=== PATIENT | male | born 1940 | race Caucasian/White ===

== ENCOUNTER 2017-02-21 09:28 | Emergency (ER) | payer MEDICARE, OTHER ==
[~2017-02-21] VITALS: Ht 167.6 cm; Wt 95.0 kg
[~2017-02-21 09:28] MED LIST: DILT300C43; LEVO88TA; SIMV20TA2; TELM80TA2
[2017-02-21 09:31] VITALS: Ht 167.6 cm; Wt 95.0 kg
--- NOTE | 2017-02-21 10:37 | ERD ---
ER Documentation Chief Complaint Date/Time DATE: 02/21/17 TIME: 10:29 Chief Complaint Complains of right rib pain after a last night HPI 76-year-old male patient with a past medical history of hypertension, hyperlipidemia, hypothyroidism presents to the ED for a mechanical fall that occurred yesterday, last night at 11:30 PM. States that he had 1.5 bottles of wine last night, accidentally fell and hit the right side of his rib onto a stool. Reports that he also hit his head. Describes the pain as achy and rates it a 9 out of 10. States that he is taking aspirin. Reports that he is taking Diltiazem, Micardis, Synthroid, Atorvastatin. Reports that he has had a long-standing history of drinking wine daily. Denies any drug use or smoking. Denies any chest pain, shortness of breath, wheezing, neck pain, headache, nausea, vomiting. Denies any loss of consciousness. Denies any seizures. ROS All systems reviewed and are negative except as per history of present illness. Medications Home Meds Active Scripts Acetaminophen* (Tylophen*) 500 Mg Capsule, 1 CAP PO Q6H Y for PAIN AND OR ELEVATED TEMP, #20 CAP Prov:JORDANA CABRAL PA-C 02/21/17 Hydrocodone/Acetaminophen ([place]st 5-325 Tablet) 1 Each Tablet, 1 TAB PO QHS Y for PAIN, #7 TAB Prov:JORDANA CABRAL PA-C 02/21/17 Reported Medications Telmisartan (Micardis) 80 Mg Tablet 08/24/10 Diltiazem Hcl (Diltiazem Er) 300 Mg Capsule.sa 08/24/10 Levothyroxine Sodium* (Synthroid*) 88 Mcg Tablet 08/24/10 Simvastatin (Simvastatin) 20 Mg Tablet 08/24/10 Allergies Allergies: Coded Allergies: Diltiazem (Verified Allergy, Severe, 08/24/10) Uncoded Allergies: DUST (Allergy, Mild, 08/25/10) SEAFOOD (Allergy, Mild, 08/25/10) PMhx/Soc Medical and Surgical Hx: pt denies Medical Hx, pt denies Surgical Hx History of Surgery: No Anesthesia Reaction: No Hx Neurological Disorder: No Hx Respiratory Disorders: No Hx Cardiac Disorders: No Hx Psychiatric Problems: No Hx Miscellaneous Medical Probl: No Hx Alcohol Use: No Hx Substance Use: No Hx Tobacco Use: No Smoking Status: Never smoker Physical Exam Vitals Vital Signs Date Time Temp Pulse Resp B/P Pulse Ox O2 Delivery O2 Flow Rate FiO2 02/21/17 12:25 98.5 59 18 129/69 97 Room Air 02/21/17 09:31 97.6 73 20 127/76 98 Physical Exam Const: [id number], well-nourished. In no acute distress. Head: Atraumatic, normocephalic. No hematoma. No simpson sign. Slight ecchymosis noted on right side of forehead. No lacerations, abrasions or bleeding noted. Eyes: Normal Conjunctiva without injection. No purulent discharge. PERRL. EOMI ENT: Normal external ear. Ear canal without erythema. Tympanic membrane pearly black without effusion or bulging. No hemotympanum. Nasal canal clear with normal turbinates. Moist oropharynx without tonsillar exudates. Non- erythematous pharynx. Uvula midline. No drooling. No trismus. Neck: Full range of motion. No meningismus. No cervical lymphadenopathy. Resp: Clear to auscultation bilaterally. No wheezing, rhonchi, rales, or crackles. No accessory muscle use. No retractions. Cardio: Regular rate and rhythm. No murmurs, rubs or gallops. Chest: Tenderness to palpation of right lower ribs. No crepitus. Abd: Soft, non tender, non distended. Normal bowel sounds. No palpable masses. No rebound tenderness. No guarding. No ecchymosis. Skin: No petechiae or rashes Back: No midline tenderness. No CVA tenderness. Ext: No cyanosis, or edema. Neur: Awake and alert. Psych: Normal Mood and Affect Procedures/MDM 76-year-old male patient with a past medical history of hypothyroidism, hypertension, hyperlipidemia presents to the ED complaining of right rib pain that started last night. Patient is afebrile and nontoxic-appearing. Patient has normal vital signs. A CT of the brain without contrast, CT of the neck, chest x-ray, right rib x-ray was ordered to further evaluate patient. PROCEDURE: CT brain without contrast CLINICAL INDICATION: Head trauma/injury, fall TECHNIQUE: CT of the brain without contrast performed on a multidetector CT scanner. One or more of the following dose reduction techniques were used: Automated exposure control, adjustment in mA and / or kV according to patient size, use of iterative reconstructive technique. CTDIvol = 43 mGy; DLP = 720 mGy-cm. COMPARISON: None available FINDINGS: No acute intracranial hemorrhage is identified. No extra-axial fluid collection is seen. There is no mass effect. No midline shift is identified. The ventricles and sulci are mild to moderately enlarged compatible with volume loss. There are mild to moderate areas of hypodensity in the periventricular - deep white matter which are nonspecific but suggestive of chronic small vessel ischemic changes. Black-white differentiation is preserved. Atherosclerotic calcifications of the proximal intracranial arteries are noted. Calvarium and skull base are intact. Mastoid air cells and imaged paranasal sinuses grossly clear. IMPRESSION: 1. No evidence of acute intracranial pathology. 2. Mild to moderate volume loss, with mild to moderate chronic small vessel ischemic changes. PROCEDURE: CT cervical spine without contrast. CLINICAL INDICATION: Fall, neck pain TECHNIQUE: CT of the cervical spine without contrast was performed on a multidetector CT scanner, with multiplanar reformats. One or more of the following dose reduction techniques were used: Automated exposure control, adjustment in mA and / or kV according to patient size, use of iterative reconstructive technique. CTDIvol = 22 mGy and DLP = 450 mGy-cm. COMPARISON: None available. FINDINGS: No fracture or dislocation is identified. There is straightening of the lordosis of the cervical spine. Alignment is otherwise grossly intact. The vertebral bodies are maintained in height. There are atlantoaxial joint degenerative changes, anterior osteophytes at C3-4, C5-6, C6-7 with disc space narrowing, severe at C5-6, mild - moderate at C2-3, C6-7, C7-T1. C2-3: There is a posterior disk/osteophyte with mild central canal stenosis identified. There is facet arthropathy with mild left foraminal narrowing. C3-4: There is a posterior disk/osteophyte with with mild central canal stenosis identified. There are uncovertebral osteophytes and facet arthropathy with moderate - severe left foraminal narrowing. C4-5: There is posterior disc osteophyte and facet arthropathy without significant central canal stenosis or foraminal narrowing identified. C5-6: There is a posterior disk/osteophyte with mild central canal stenosis identified. There are uncovertebral osteophytes and facet arthropathy with mild right, mild to moderate left foraminal narrowing. C6-7: There is posterior disc osteophyte without central canal stenosis identified. There are uncovertebral osteophytes and facet arthropathy with mild bilateral foraminal narrowing. C7-T1: No disc bulge or herniation is identified. There is facet arthropathy. There is no central canal stenosis or foraminal narrowing. IMPRESSION: 1. No fracture/dislocation. 2. Cervical spondylosis/degenerative enthesopathy, with multilevel mild central canal stenosis, and multilevel foraminal narrowing outlined in detail above. PROCEDURE: XR Chest. CLINICAL INDICATION: Fell, right rib pain. TECHNIQUE: Single frontal portable chest was obtained. COMPARISON: None. FINDINGS: Cardiomediastinal silhouette appears normal There are atherosclerotic calcifications in the thoracic aorta. Pulmonary vasculature appears normal. Lungs appear well expanded and clear. No pneumothorax. Costophrenic angles are well defined. There are minimally displaced fractures of the posterior seventh and eighth ribs. IMPRESSION: 1. Atherosclerotic calcifications in the thoracic aorta. 2. No acute air space process identified. 3. No pneumothorax. 4. Minimally displaced fractures of the posterior seventh and eighth ribs. PROCEDURE: XR right rib series. CLINICAL INDICATION: Fell, right rib pain. TECHNIQUE: Three-view of the right rib cage are available for review COMPARISON: Chest radiograph from the same date. FINDINGS: There are minimally displaced fractures of the right seventh, eighth, ninth, tenth and eleventh ribs. The visualized portions of the underlying lung is clear. No evidence of a pneumothorax. IMPRESSION: 1. Minimally displaced fractures of the right seventh, eighth, ninth, tenth and eleventh ribs. 2. No pneumothorax. He sustained minimally displaced fractures of the right 7th, 8th, 9th 10th and 11th ribs. Incentive spirometer given to patient to prevent pneumonia. Low suspicion for acute myocardial infarction, pneumothorax, pneumonia, cardiac tamponade, pulmonary embolism, pleural effusion, AAA, aortic dissection, liver laceration, splenic injury, perforated viscus, acute abdomen, Boerhaave's syndrome, cardiac dysrhythmias,meningitis, intracranial bleed, seizure, stroke, TIA or other emergent conditions. Low suspicion for intracranial, subarachnoid hemorrhage, meningitis, TIA, stroke, seizures, subdural hematoma, epidural hematoma, cerebral sinus thrombosis, or other emergent conditions. Discharge medications: [place], Tylenol Follow up with primary care physician in 1-2 days. Instructed patient to return to the ED sooner for any worsening symptoms. Patient's questions were answered. Patient understood and agreed with discharge plan. Patient discharged stable. Departure Diagnosis: Primary Impression: Head injury Encounter type: initial encounter Qualified Code: S09.90XA - Injury of head , initial encounter Additional Impression: Rib pain on right side Condition: Stable Patient Instructions: Alcohol Intoxication, HEAD INJURY, No Wake-Up (Adult), Rib Contusion, Fall Prevention Referrals: COMMUNITY CLINICS YOU HAVE RECEIVED A MEDICAL SCREENING EXAM AND THE RESULTS INDICATE THAT YOU DO NOT HAVE A CONDITION THAT REQUIRES URGENT TREATMENT IN THE EMERGENCY DEPARTMENT. FURTHER EVALUATION AND TREATMENT OF YOUR CONDITION CAN WAIT UNTIL YOU ARE SEEN IN YOUR DOCTORS OFFICE WITHIN THE NEXT 1-2 DAYS. IT IS YOUR RESPONSIBILITY TO MAKE AN APPOINTMENT FOR FOLOW-UP CARE. IF YOU HAVE A PRIMARY DOCTOR --you should call your primary doctor and schedule an appointment IF YOU DO NOT HAVE A PRIMARY DOCTOR YOU CAN CALL OUR PHYSICIAN REFERRAL HOTLINE AT IF YOU CAN NOT AFFORD TO SEE A PHYSICIAN YOU CAN CHOSE FROM THE FOLLOWING [facility] [address] [facility]. [facility] [address] [facility]. [facility] [address] [facility] [facility] [address] [facility] [facility] [address] [facility]. [facility]. [address] [facility]. [facility] YOU HAVE RECEIVED A MEDICAL SCREENING EXAM AND THE RESULTS INDICATE THAT YOU DO NOT HAVE A CONDITION THAT REQUIRES URGENT TREATMENT IN THE EMERGENCY DEPARTMENT. FURTHER EVALUATION AND TREATMENT OF YOUR CONDITION CAN WAIT UNTIL YOU ARE SEEN IN YOUR DOCTORS OFFICE WITHIN THE NEXT 1-2 DAYS. IT IS YOUR RESPONSIBILITY TO MAKE AN APPOINTMENT FOR FOLOW-UP CARE. IF YOU HAVE A PRIMARY DOCTOR --you should call your primary doctor and schedule and appointment IF YOU DO NOT HAVE A PRIMARY DOCTOR YOU CAN CALL OUR PHYSICIAN REFERRAL HOTLINE AT . IF YOU CAN NOT AFFORD TO SEE A PHYSICIAN YOU CAN CHOSE FROM THE FOLLOWING [facility] INSTITUTIONS: [facility] [address] [place] [address] [facility] [address] [place] [address] [facility] [address] [place] [address] [facility] URGENT CARE/SPECIALTIES Additional Instructions: Call your primary care doctor TOMORROW for an appointment during the next 2-3 days.See the doctor sooner or return here if your condition worsens before your appointment time. JORDANA CABRAL PA-C Feb 21, 2017 10:37
--- NOTE | 2017-02-21 11:19 | RADRPT ---
PROCEDURE: CT brain without contrast CLINICAL INDICATION: Head trauma/injury, fall TECHNIQUE: CT of the brain without contrast performed on a multidetector CT scanner. One or more o f the following dose reduction techniques were used: Automated exposure control, adjustment in mA an d / or kV according to patient size, use of iterative reconstructive technique. CTDIvol = 43 mGy; D LP = 720 mGy-cm. COMPARISON: None available FINDINGS: No acute intracranial hemorrhage is identified. No extra-axial fluid collection is seen. There is no mass effect. No midline shift is identified. The ventricles and sulci are mild to moderately enlarged compatible with volume loss. There are mild to moderate areas of hypodensity in the periventricular - deep white matter which are nonspecific but suggestive of chronic small vessel ischemic changes. Black-white differentiation is preserved. Atherosclerotic calcifications of the proximal intracranial arteries are noted. Calvarium and skull base are intact. Mastoid air cells and imaged paranasal sinuses grossly clear. IMPRESSION: 1. No evidence of acute intracranial pathology. 2. Mild to moderate volume loss, with mild to moderate chronic small vessel ischemic changes. RPTAT: VV .Richy Bass MD, MD Date Time Electronically viewed and signed by .Richy Bass MD, MD on 02/21/2017 11:18 .O/
--- NOTE | 2017-02-21 11:26 | RADRPT ---
PROCEDURE: CT cervical spine without contrast. CLINICAL INDICATION: Fall, neck pain TECHNIQUE: CT of the cervical spine without contrast was performed on a multidetector CT scanner, w ith multiplanar reformats. One or more of the following dose reduction techniques were used: Automa cristina exposure control, adjustment in mA and / or kV according to patient size, use of iterative recon structive technique. CTDIvol = 22 mGy and DLP = 450 mGy-cm. COMPARISON: None available. FINDINGS: No fracture or dislocation is identified. There is straightening of the lordosis of the cervical sp ine. Alignment is otherwise grossly intact. The vertebral bodies are maintained in height. There are atlantoaxial joint degenerative changes, anterior osteophytes at C3-4, C5-6, C6-7 with disc spa ce narrowing, severe at C5-6, mild - moderate at C2-3, C6-7, C7-T1. C2-3: There is a posterior disk/osteophyte with mild central canal stenosis identified. There is f acet arthropathy with mild left foraminal narrowing. C3-4: There is a posterior disk/osteophyte with with mild central canal stenosis identified. There are uncovertebral osteophytes and facet arthropathy with moderate - severe left foraminal narrowing. C4-5: There is posterior disc osteophyte and facet arthropathy without significant central canal benson nosis or foraminal narrowing identified. C5-6: There is a posterior disk/osteophyte with mild central canal stenosis identified. There are u ncovertebral osteophytes and facet arthropathy with mild right, mild to moderate left foraminal narr owing. C6-7: There is posterior disc osteophyte without central canal stenosis identified. There are unco vertebral osteophytes and facet arthropathy with mild bilateral foraminal narrowing. C7-T1: No disc bulge or herniation is identified. There is facet arthropathy. There is no central c anal stenosis or foraminal narrowing. IMPRESSION: 1. No fracture/dislocation. 2. Cervical spondylosis/degenerative enthesopathy, with multilevel mild central canal stenosis, and multilevel foraminal narrowing outlined in detail above. RPTAT: VV .Richy Bass MD, MD Date Time Electronically viewed and signed by .Richy Bass MD, MD on 02/21/2017 11:25 .O/
--- NOTE | 2017-02-21 11:33 | RADRPT ---
PROCEDURE: XR Chest. CLINICAL INDICATION: Fell, right rib pain. TECHNIQUE: Single frontal portable chest was obtained. COMPARISON: None. FINDINGS: Cardiomediastinal silhouette appears normal There are atherosclerotic calcifications in the thoracic aorta. Pulmonary vasculature appears normal. Lungs appear well expanded and clear. No pneumothorax. Costophrenic angles are well defined. There are minimally displaced fractures of the posterior seventh and eighth ribs. IMPRESSION: 1. Atherosclerotic calcifications in the thoracic aorta. 2. No acute air space process identified. 3. No pneumothorax. 4. Minimally displaced fractures of the posterior seventh and eighth ribs. RPTAT: [facility] Physician Klaudia Date Time Electronically viewed and signed by Physician Klaudia on 02/21/2017 11:32 /
--- NOTE | 2017-02-21 11:34 | RADRPT ---
PROCEDURE: XR right rib series. CLINICAL INDICATION: Fell, right rib pain. TECHNIQUE: Three-view of the right rib cage are available for review COMPARISON: Chest radiograph from the same date. FINDINGS: There are minimally displaced fractures of the right seventh, eighth, ninth, tenth and eleventh ribs . The visualized portions of the underlying lung is clear. No evidence of a pneumothorax. IMPRESSION: 1. Minimally displaced fractures of the right seventh, eighth, ninth, tenth and eleventh ribs. 2. No pneumothorax. RPTAT: [facility] Physician Klaudia Date Time Electronically viewed and signed by Gopal Richardson Physician on 02/21/2017 11:34 /
[2017-02-21] MEDS ORDERED: ACET500C5 PO (12:18)
[2017-02-21] MEDS ORDERED: HYDR-906 PO (12:18)
[2017-02-21 12:25] VITALS: BP 129/69; PULSE 59; RESP 18; TEMP 98.5
== END 2017-02-21 12:25 | disposition home or self-care (01) ==
LOC: FTE 09:28
DX: S09.90XA Unspecified injury of head, initial encounter (principal); I10 Essential (primary) hypertension; E03.9 Hypothyroidism, unspecified; W01.190A Fall on same level from slipping, tripping and stumbling with subsequent striking against furniture, initial encounter; Y92.9 Unspecified place or not applicable
CPT/HCPCS: 70450; 71010; 71100; 72125